=== PATIENT | male | born 1985 | race Caucasian/White ===

== ENCOUNTER → 2020-09-16 | Outpatient (CLI) | payer OTHER ==
[~2020-09-16] MED LIST: E-Z-GAS II EFFERVESCENT PACKET (SODIUM BICARB./CITRIC ACID/SIMETHICONE) As Ordered ONE; E-Z-HD 98% w/w 340GM SUSP BTL As Ordered ONE; E-Z-PAQUE 96% w/w SUSP 176GM BTL As Ordered ONE
--- NOTE | 2020-09-16 17:32 | REP ---
INDICATION: GERD,DYSPHAGIA. COMPARISON: None. TECHNIQUE: This procedure was performed under the direct supervision of Dr. Kimble. Images were reviewed with Dr. Kimble. Liquid barium and gas producing granules were given in the erect position as well as liquid barium in the prone oblique positions in order to perform a double contrast esophagram examination. A combination of fluoroscopy, spot films and last image hold technology was utilized. 0.6 minutes of fluoro time was utilized for this procedure. 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 The superior mediastinal structures are midline. The heart size is within normal limits. The lungs are clear. The oral and pharyngeal stages of deglutition are unremarkable. Esophageal transport is prompt and efficient and there is no esophagitis, stricture or mucosal ring. There is a sliding-type hiatal hernia.There is gastroesophageal reflux demonstrated to below the level of the gisselle IMPRESSION: There is a sliding-type hiatal hernia. There is gastroesophageal reflux demonstrated to below the level of the gisselle. <Electronically signed by Yanick Coleman > 09/16/20 1708 <Electronically signed by Pineda Kimble > 09/16/20 [id number]
== END ==
LOC: M RAD 08:05
PROVIDERS: ATTEND Physician Assistant Medical
DX: K21.9 Gastro-esophageal reflux disease without esophagitis (principal); R13.10 Dysphagia, unspecified

== ENCOUNTER 2020-09-30 12:18 | Day surgery (SDC) | payer OTHER ==
[~2020-09-30] VITALS: Ht 203.2 cm; Wt 113.1 kg
[~2020-09-30 12:18] MED LIST changes: +ADVI200C8 PO; -E-Z-GAS II EFFERVESCENT PACKET (SODIUM BICARB./CITRIC ACID/SIMETHICONE) As Ordered ONE; -E-Z-HD 98% w/w 340GM SUSP BTL As Ordered ONE; -E-Z-PAQUE 96% w/w SUSP 176GM BTL As Ordered ONE; +NS 1,000 ML IV ONE; +OMEP-218 PO
[2020-09-30] MEDS ORDERED: ALLE60TA69 PO (12:39)
[2020-09-30] MEDS ORDERED: propofoL 200 MG/20 ML VIAL As Ordered ONE ×2 (13:52→14:15)
[2020-09-30] MEDS ORDERED: LIDOCAINE 2% 100MG/5ML SDV (FOR ANES.) As Ordered ONE (13:52)
[2020-09-30] MEDS ORDERED: fentaNYL 100 MCG/2 ML INJECTION (J3010) As Ordered ONE (13:52)
--- NOTE | 2020-09-30 14:45 | ROOR ---
Patient Name: Frank Qureshi Procedure Date: 09/30/2020 2:06 PM Date of : 1985 Age: 35 Room: [facility] Gender: Male Note Status: Finalized Procedure: Upper GI endoscopy Indications: Dysphagia Providers: Fransisco Grossman MD Referring MD: CHARLIE GUERRA MD Requesting Provider: Medicines: Monitored Anesthesia Care Complications: No immediate complications. Procedure: Pre-Anesthesia Assessment: - Prior to the procedure, a History and Physical was performed, and patient medications and allergies were reviewed. The patient is competent. The risks and benefits of the procedure and the sedation options and risks were discussed with the patient. All questions were answered and informed consent was obtained. Patient identification and proposed procedure were verified by the physician, the nurse and the anesthesiologist in the procedure room. Mental Status Examination: alert and oriented. Airway Examination: normal oropharyngeal airway and neck mobility. Respiratory Examination: clear to auscultation. CV Examination: normal. Prophylactic Antibiotics: The patient does not require prophylactic antibiotics. Prior Anticoagulants: The patient has taken no previous anticoagulant or antiplatelet agents. ASA Grade Assessment: II - A patient with mild systemic disease. After reviewing the risks and benefits, the patient was deemed in satisfactory condition to undergo the procedure. The anesthesia plan was to use monitored anesthesia care (MAC). Immediately prior to administration of medications, the patient was re-assessed for adequacy to receive sedatives. The heart rate, respiratory rate, oxygen saturations, blood pressure, adequacy of pulmonary ventilation, and response to care were monitored throughout the procedure. The physical status of the patient was re-assessed after the procedure. The Endoscope was introduced through the mouth, and advanced to the second part of duodenum. The upper GI endoscopy was accomplished without difficulty. The patient tolerated the procedure well. Findings: Mucosal changes including ringed esophagus, longitudinal furrows, small-caliber esophagus and white plaques were found in the middle third of the esophagus and in the lower third of the esophagus. Biopsies were obtained from the proximal and distal esophagus with cold forceps for histology of suspected eosinophilic esophagitis. Verification of patient identification for the specimen was done by the physician and nurse using the patient's name, date and medical record number. Estimated blood loss was minimal. Scattered mild inflammation characterized by erythema and granularity was found in the gastric antrum. Biopsies were taken with a cold forceps for histology. Biopsies were taken with a cold forceps for Helicobacter pylori testing. The duodenal bulb, second portion of the duodenum and third portion of the duodenum were normal. Impression: - Esophageal mucosal changes consistent with eosinophilic esophagitis. Biopsied. - Gastritis. Biopsied. - Normal duodenal bulb, second portion of the duodenum and third portion of the duodenum. Recommendation: - Patient has a contact number available for emergencies. The signs and symptoms of potential delayed complications were discussed with the patient. Return to normal activities tomorrow. Written discharge instructions were provided to the patient. - High fiber diet. - Continue present medications. - Await pathology results. - Follow an antireflux regimen. - Telephone GI clinic for pathology results in 2 weeks. - Return to primary care physician. Procedure Code(s): --- Professional --- 56682, Esophagogastroduodenoscopy, flexible, transoral; with biopsy, single or multiple Diagnosis Code(s): --- Professional --- K22.8, Other specified diseases of esophagus K29.70, Gastritis, unspecified, without bleeding R13.10, Dysphagia, unspecified CPT copyright 2019 [employer]. All rights reserved. The codes documented in this report are preliminary and upon marketing support coordinator review may be revised to meet current compliance requirements. Fransisco Grossman MD Fransisco Grossman MD 09/30/2020 2:45:35 PM Electronically signed by Fransisco Grossman MD Number of Addenda: 0 Note Initiated On: 09/30/2020 2:06 PM Estimated Blood Loss: Estimated blood loss was minimal.
[2020-09-30 14:50] VITALS: BP 117/73
== END 2020-09-30 15:03 | disposition home or self-care (01) ==
LOC: M OPP 12:18 → EDUNIT# 13:00 → M OPP 15:03
PROVIDERS: ATTEND Internal Medicine Gastroenterology
DX: K22.8 Other specified diseases of esophagus (principal); K29.70 Gastritis, unspecified, without bleeding; R13.10 Dysphagia, unspecified; K21.9 Gastro-esophageal reflux disease without esophagitis
CPT/HCPCS: 43239; 88305; J3010

== ENCOUNTER 2021-04-20 06:34 | Day surgery (SDC) | payer OTHER ==
[~2021-04-20] VITALS: Ht 203.2 cm; Wt 113.1 kg
[~2021-04-20 06:34] MED LIST changes: +ALLE60TA69 PO; +OMEP-173 PO; -OMEP-218 PO; +VITMTA PO
[2021-04-20] MEDS ORDERED: LIDOCAINE 2% 100MG/5ML SDV (FOR ANES.) As Ordered ONE (06:54)
[2021-04-20] MEDS ORDERED: propofoL 200 MG/20 ML VIAL As Ordered ONE (06:54)
[2021-04-20 08:14] VITALS: BP 128/75
== END 2021-04-20 08:28 | disposition home or self-care (01) ==
LOC: M OPP 06:34
PROVIDERS: ATTEND Internal Medicine Gastroenterology
DX: K20.0 Eosinophilic esophagitis (principal); K44.9 Diaphragmatic hernia without obstruction or gangrene; K22.89 Other specified disease of esophagus; K22.2 Esophageal obstruction; R13.10 Dysphagia, unspecified; Z86.19 Personal history of other infectious and parasitic diseases